=== PATIENT | female | born 1985 | race Caucasian/White ===

== ENCOUNTER → 2016-12-01 | Outpatient (CLI) | payer MEDICAID ==
--- NOTE | 2016-12-02 09:09 | US ---
Examination: Greater than 14 weeks transabdominal ultrasound with color Doppler and M-mode evaluatio n. HISTORY: FINDINGS: LMP is 07/11/2016 EVALUATION: Anterior placenta with a cephalic lie and grade 1. Visually amniotic fluid is with in normal limits. Fine detail is obscured secondary to body habitus. Three-vessel cord is noted present, not well characterized on the provided images. Ventricles are within normal limits. Four chamber heart is noted. Heart rate is 156 beats per minute. BIOMETRY AND GESTATIONAL AGE: Biparietal diameter 4.7 cm. The abdominal circumference measures 15.7 cm. The femoral length is 3.5 cm with head circumference of 18.6 cm. Gestational age is 21 weeks and 0 days. The expected date of delivery is approximately 04/13/2017. Fetus weight is 37 grams. Overall the fetus is within the 73rd percentile. Other detail anatomy summarized into PACs sheet after the images. No anatomical anomalies. The kidneys are also not well contrast on the provided images. IMPRESSION: Single active IU with cephalic fetus. Anterior placenta with grade 1, no placenta previa. No anomalies are seen. Amniotic fluid appears within normal limits.
== END ==
LOC: MW.US 08:58
PROVIDERS: ATTEND Advanced Practice Midwife
DX: Z34.90 Encounter for supervision of normal pregnancy, unspecified, unspecified trimester (principal)
CPT/HCPCS: 76805; 76805-26; G0145

== ENCOUNTER → 2017-01-26 | Outpatient (CLI) | payer MEDICAID | LOC: MW.CHOBGYN 08:33 | PROVIDERS: ATTEND Advanced Practice Midwife | DX: Z34.90 Encounter for supervision of normal pregnancy, unspecified, unspecified trimester (principal) | CPT/HCPCS: 36415; 82950; 85027; 86850 ==

== ENCOUNTER 2017-03-14 21:46 | Emergency (ER) | payer MEDICAID ==
--- NOTE | 2017-03-14 22:16 | EDM.PDOC ---
ED HPI GENERAL MEDICAL PROBLEM - General Chief Complaint: Skin Complaint Stated Complaint: RASH/MITES FROM CAT Time Seen by Provider: 03/14/17 22:09 - History of Present Illness INITIAL COMMENTS - FREE TEXT/NARRATIVE: HISTORY AND PHYSICAL: History of present illness: Patient 31-year-old female presents a concern of rash involving her upper chest face and neck that she feels may be from insect bites related to a new PET and may or may not have been infected she denies fever chills nausea vomiting she is currently Review of systems: As per history of present illness and below otherwise all systems reviewed and negative. Past medical history: As per history of present illness and as reviewed below otherwise noncontributory. Surgical history: As per history of present illness and as reviewed below otherwise noncontributory. Social history: No reported history of drug or alcohol abuse. Family history: As per history of present illness and as reviewed below otherwise noncontributory. Physical exam: HEENT: Atraumatic, normocephalic, pupils reactive, negative for conjunctival pallor or scleral icterus, mucous membranes moist, throat clear, neck supple, nontender, trachea midline. Lungs: Clear to auscultation, breath sounds equal bilaterally, chest nontender. Heart: S1S2, regular, negative for clicks, rubs, or JVD. Abdomen: Soft, nondistended, nontender. Negative for masses or hepatosplenomegaly. Negative for costovertebral tenderness. Pelvis: Stable nontender. Genitourinary: Deferred. Rectal: Deferred. Extremities: Atraumatic, negative for cords or calf pain. Neurovascular unremarkable. Neuro: Awake, alert, oriented. Cranial nerves II through XII unremarkable. Cerebellum unremarkable. Motor and sensory unremarkable throughout. Exam nonfocal. Skin: Patient has maculopapular rash with areas of excoriation involving her upper chest neck and chin some mild erythema no warmth no fluctuance no induration Diagnostics: None Therapeutics: None Impression: #1 rash Definitive disposition and diagnosis as appropriate pending reevaluation and review of above. 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: Reports: 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, Musculoskeletal History: Reports: None Neurological History: Reports: None Psychiatric History: Reports: None Endocrine/Metabolic History: Reports: None Hematologic History: Reports: None Immunologic History: Reports: None Oncologic (Cancer) History: Reports: None Dermatologic History: Reports: None - Infectious Disease History Infectious Disease History: Reports: Chicken Pox - Past Surgical History HEENT Surgical History: Reports: Adenoidectomy, Myringotomy w Tube(s), Tonsillectomy Social & Family History - Family History Family Medical History: Noncontributory - Tobacco Use Smoking Status *Q: Never Smoker Second Hand Smoke Exposure: No - Caffeine Use Caffeine Use: Reports: None - Recreational Drug Use Recreational Drug Use: No ED ROS GENERAL - Review of Systems Review Of Systems: ROS reveals no pertinent complaints other than HPI. ED EXAM, SKIN/RASH Exam: See Below (See dictation) Departure - Departure Time of Disposition: 22:15 Disposition: Home, Self-Care 01 Condition: Good Clinical Impression: Cellulitis - Discharge Information Forms: ED Department Discharge Additional Instructions: The following information is given to patients seen in the emergency department who are being discharged to home. This information is to outline your options for follow-up care. We provide all patients seen in our emergency department with a follow-up referral. The need for follow-up, as well as the timing and circumstances, are variable depending upon the specifics of your emergency department visit. If you don't have a primary care physician on staff, we will provide you with a referral. We always advise you to contact your personal physician following an emergency department visit to inform them of the circumstance of the visit and for follow-up with them and/or the need for any referrals to a consulting specialist. The emergency department will also refer you to a specialist when appropriate. This referral assures that you have the opportunity for followup care with a specialist. All of these measure are taken in an effort to provide you with optimal care, which includes your followup. Under all circumstances we always encourage you to contact your private physician who remains a resource for coordinating your care. When calling for followup care, please make the office aware that this follow-up is from your recent emergency room visit. If for any reason you are refused follow-up, please contact the [facility] emergency department at and asked to speak to the emergency department charge nurse. Keflex as prescribed follow-up primary medical doctor/dermatology is referred return as needed as discussed avoid any possible sources for rash including new
[2017-03-15 02:35] VITALS: BP 117/69
== END 2017-03-14 22:39 | disposition home or self-care (01) ==
LOC: MW.ED 21:46
DX: L03.211 Cellulitis of face (principal); L03.221 Cellulitis of neck; Z79.899 Other long term (current) drug therapy; Z96.22 Myringotomy tube(s) status
CPT/HCPCS: 99282; 99283

== ENCOUNTER 2017-09-17 14:41 | Emergency (ER) | payer MEDICAID ==
[2017-09-17] MEDS ORDERED: Albuterol/Ipratropium 3.0-0.5 MG/3 ML Neb Soln NEB ONE (15:08)
--- NOTE | 2017-09-17 16:22 | EDM.PDOC ---
ED HPI GENERAL MEDICAL PROBLEM - General Chief Complaint: Respiratory Problem Stated Complaint: SICK Time Seen by Provider: 09/17/17 15:18 Source of Information: Reports: Patient History Limitations: Reports: No Limitations - History of Present Illness INITIAL COMMENTS - FREE TEXT/NARRATIVE: History of present illness: [32-year-old female comes in complaining of cold type symptoms congestion cough intermittent low-grade fever.] Review of systems: As per history of present illness and below otherwise all systems reviewed and negative. Past medical history: As per history of present illness and as reviewed below otherwise noncontributory. Surgical history: As per history of present illness and as reviewed below otherwise noncontributory. Social history: No reported history of drug or alcohol abuse. Family history: As per history of present illness and as reviewed below otherwise noncontributory. Physical exam: HEENT: Atraumatic, normocephalic, pupils reactive, negative for conjunctival pallor or scleral icterus, mucous membranes moist with oral pharyngeal erythema , neck supple, nontender, bilateral TMs noted to be red and dull, trachea midline. Lungs: Clear to auscultation, breath sounds equal bilaterally, chest nontender. Heart: S1S2, regular, negative for clicks, rubs, or JVD. Abdomen: Soft, nondistended, nontender. Negative for masses or hepatosplenomegaly. Negative for costovertebral tenderness. Pelvis: Stable nontender. Genitourinary: Deferred. Rectal: Deferred. Extremities: Atraumatic, negative for cords or calf pain. Neurovascular unremarkable. Neuro: Awake, alert, oriented. Cranial nerves II through XII unremarkable. Cerebellum unremarkable. Motor and sensory unremarkable throughout. Exam nonfocal. Diagnostics: [Influenza AB] Therapeutics: [] Impression: [#1 otitis media #2 pharyngitis] Plan: [Antibiotics] Definitive disposition and diagnosis as appropriate pending reevaluation and review of above. 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: 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, Musculoskeletal History: Reports: None Neurological History: Reports: None Psychiatric History: Reports: None Endocrine/Metabolic History: Reports: None Hematologic History: Reports: None Immunologic History: Reports: None Oncologic (Cancer) History: Reports: None Dermatologic History: Reports: None - Infectious Disease History Infectious Disease History: Reports: Chicken Pox - Past Surgical History Head Surgeries/Procedures: Reports: None HEENT Surgical History: Reports: Adenoidectomy, Myringotomy w Tube(s), Tonsillectomy Female Surgical History: Reports: Section Social & Family History - Family History Family Medical History: Noncontributory - Tobacco Use Smoking Status *Q: Former Smoker Used Tobacco, but Quit: Yes Month Tobacco Last Used: 10 months Second Hand Smoke Exposure: No - Caffeine Use Caffeine Use: Reports: None - Recreational Drug Use Recreational Drug Use: No ED ROS GENERAL - Review of Systems Review Of Systems: See Below (See history of present illness) ED EXAM, GENERAL - Physical Exam Exam: See Below (See history of present illness) Course - Vital Signs Last Recorded V/S: Last Vital Signs Temp 36.4 C 09/17/17 15:04 Pulse 100 09/17/17 15:04 Resp 16 09/17/17 15:04 BP 127/55 L 09/17/17 15:04 Pulse Ox 98 09/17/17 15:04 - Orders/Labs/Meds Orders: Active Orders 24 hr Category Date Time Status RT Aerosol Therapy [RC] ASDIRECTED Care 09/17/17 15:08 Active Meds: Medications Discontinued Medications Generic Name Dose Route Start Last Admin Trade Name Freq PRN Reason Stop Dose Admin Albuterol/Ipratropium 3 ml 09/17/17 15:08 09/17/17 15:35 Duoneb 3.0-0.5 Mg/3 Ml NEB 09/17/17 15:09 3 ml ONETIME ONE Administration Departure - Departure Time of Disposition: 17:05 Disposition: Home, Self-Care 01 Condition: Good Clinical Impression: Sinusitis, Otitis media, Pharyngitis, Cough - Discharge Information Referrals: Matthew Bledsoe MD [Primary Care Provider] - Forms: ED Department Discharge Additional Instructions: The following information is given to patients seen in the emergency department who are being discharged to home. This information is to outline your options for follow-up care. We provide all patients seen in our emergency department with a follow-up referral. The need for follow-up, as well as the timing and circumstances, are variable depending upon the specifics of your emergency department visit. If you don't have a primary care physician on staff, we will provide you with a referral. We always advise you to contact your personal physician following an emergency department visit to inform them of the circumstance of the visit and for follow-up with them and/or the need for any referrals to a consulting specialist. The emergency department will also refer you to a specialist when appropriate. This referral assures that you have the opportunity for follow-up care with a specialist. All of these measure are taken in an effort to provide you with optimal care, which includes your follow-up. Under all circumstances we always encourage you to contact your private physician who remains a resource for coordinating your care. When calling for follow-up care, please make the office aware that this follow-up is from your recent emergency room visit. If for any reason you are refused follow-up, please contact the [facility] Emergency Department at and asked to speak to the emergency department charge nurse. Take medication as directed Follow-up with PCP in 2-3 days Return to ED as needed as discussed - My Orders Last 24 Hours: My Active Orders 09/17/17 15:08 RT Aerosol Therapy [RC] ASDIRECTED - Assessment/Plan Last 24 Hours: My Active Orders 09/17/17 15:08 RT Aerosol Therapy [RC] ASDIRECTED
[2017-09-17 17:28] VITALS: BP 119/68
== END 2017-09-17 17:23 | disposition home or self-care (01) ==
LOC: MW.ED 14:41
DX: H66.93 Otitis media, unspecified, bilateral (principal); J02.9 Acute pharyngitis, unspecified; J32.9 Chronic sinusitis, unspecified; Z87.891 Personal history of nicotine dependence
CPT/HCPCS: 87804; 94640; 99283; 99283-25

== ENCOUNTER 2019-01-24 05:13 | Inpatient (IN) | payer OTHER ==
[~2019-01-24 05:13] MED LIST: Acetaminophen 500 MG Tab PO PRN; Benzocaine/Menthol 20%-0.5% Spray 78 GM Cannister TOP PRN; Bisacodyl 10 MG Supp RECTAL PRN; Citric Acid/Sodium Citrate Solution 30 ML Cup PO ONE; Docusate Sodium 100 MG Cap PO PRN; Ibuprofen 400 MG Tab PO PRN; Ibuprofen 800 MG Tab PO PRN; Lanolin 100% Cream 7 GM Tube TOP PRN; Oxytocin/0.9 % Sodium Chloride 30 UNIT/500 ML BAG IV SCH; Sodium Chloride 0.9% 10 ML SDV IV PRN; Sodium Chloride 0.9% 10 ML Syringe FLUSH PRN; Sodium Chloride 0.9% 2.5 ML Syringe FLUSH PRN; Witch Hazel Medicated Pads 40/Jar TOP PRN; oxyCODONE 5 MG Tab PO PRN
[2019-01-24] MEDS: Lactated Ringers 1,000 ML IV SCH ×3 (05:34→07:28)
--- NOTE | 2019-01-24 07:01 | PCM.PREANE ---
Preanesthetic Assessment - Anesthesia/Transfusion/Family Hx Anesthesia History: Prior Anesthesia Without Reaction Other Type of Anesthesia Reaction Comment: was given medication "to relax" post- op, caused severe itching Family History of Anesthesia Reaction: No Transfusion History: No Prior Transfusion(s) Intubation History: Unknown - Review of Systems General: No Symptoms Pulmonary: No Symptoms Cardiovascular: No Symptoms Gastrointestinal: No Symptoms Neurological: No Symptoms Other: Reports: None - Physical Assessment Height: 1.7 m Weight: 144.242 kg ASA Class: 2 Mental Status: Alert & Oriented x3 Airway Class: Mallampati = 2 Dentition: Reports: Normal Dentition Thyro-Mental Finger Breadths: 3 Mouth Opening Finger Breadths: 3 ROM/Head Extension: Full Lungs: Clear to Auscultation, Normal Respiratory Effort Cardiovascular: Regular Rate, Regular Rhythm - Lab Values: Laboratory Last Values WBC 14.62 K/uL (4.0-11.0) H 01/23/19 14:13 RBC 4.02 M/uL (4.30-5.90) L 01/23/19 14:13 Hgb 11.5 g/dL (12.0-16.0) L 01/23/19 14:13 Hct 35.5 % (36.0-46.0) L 01/23/19 14:13 MCV 88.3 fL (80.0-98.0) 01/23/19 14:13 MCH 28.6 pg (27.0-32.0) 01/23/19 14:13 MCHC 32.4 g/dL (31.0-37.0) 01/23/19 14:13 RDW Std Deviation 47.1 fl (28.0-62.0) 01/23/19 14:13 RDW Coeff of Brant 15 % (11.0-15.0) 01/23/19 14:13 Plt Count 304 K/uL (150-400) 01/23/19 14:13 MPV 9.50 fL (7.40-12.00) 01/23/19 14:13 Nucleated RBC % 0.0 /100WBC 01/23/19 14:13 Nucleated RBCs # 0 K/uL 01/23/19 14:13 Blood Type O POSITIVE 01/23/19 14:13 Antibody Screen NEGATIVE 01/23/19 14:13 - Allergies Allergies/Adverse Reactions: Allergies Allergy/AdvReac Type Severity Reaction Status Date / Time No Known Allergies Allergy Verified 01/23/19 09:40 - Blood Blood Available: No - Anesthesia Plan Pre-Op Medication Ordered: None - Acknowledgements Anesthesia Type Planned: Spinal (general anesthesia back-up plan) Pt an Appropriate Candidate for the Planned Anesthesia: Yes Alternatives and Risks of Anesthesia Discussed w Pt/Guardian: Yes Pt/Guardian Understands and Agrees with Anesthesia Plan: Yes PreAnesthesia Questionnaire - Past Health History Medical/Surgical History: Denies Medical/Surgical History HEENT History: Reports: Other (See Below) Other HEENT History: wears glasses Cardiovascular History: Reports: None Respiratory History: Reports: None Gastrointestinal History: Reports: GERD Other Gastrointestinal History: during Genitourinary History: Reports: None 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: Musculoskeletal History: Reports: Fracture Other Musculoskeletal History: hx of fx wrist as a child Neurological History: Reports: None Psychiatric History: Reports: None Endocrine/Metabolic History: Reports: Obesity/BMI 30+ Hematologic History: Reports: None Immunologic History: Reports: None Oncologic (Cancer) History: Reports: None Dermatologic History: Reports: Eczema, Other (See Below) Other Dermatologic History: hx of Hydranitis Supurtiva - Infectious Disease History Infectious Disease History: Reports: Chicken Pox - Past Surgical History HEENT Surgical History: Reports: Adenoidectomy, Myringotomy w Tube(s), Oral Surgery, Tonsillectomy Other HEENT Surgeries/Procedures: wisdom teeth Female Surgical History: Reports: Section (x2) - SUBSTANCE USE Smoking Status *Q: Former Smoker Tobacco Use Within Last Twelve Months: Cigarettes Second Hand Smoke Exposure: Yes Recreational Drug Use History: No - HOME MEDS Home Medications: Home Meds Vits #93/Iron Fum/FA [ Formula Tablet] 1 each PO DAILY [History] Ranitidine [Zantac] 150 mg PO ASDIRECTED PRN 01/23/19 [History] - CURRENT (IN HOUSE) MEDS Current Meds: Current Medications Acetaminophen (Tylenol Extra Strength) 500 mg PO Q4H PRN PRN Reason: Pain Acetaminophen (Tylenol Extra Strength) 1,000 mg PO Q4H PRN PRN Reason: Pain Benzocaine/Menthol (Dermoplast Pain Relief 20%-0.5% Piru) 78 gm TOP ASDIRECTED PRN PRN Reason: Perineal Comfort Measure Bisacodyl (Dulcolax) 10 mg RECTAL ONETIME PRN PRN Reason: Constipation Docusate Sodium (Colace) 100 mg PO BID PRN PRN Reason: Constipation Emollient Ointment (Lansinoh Hpa) 0 gm TOP ASDIRECTED PRN PRN Reason: Sore Nipples Oxytocin/Sodium Chloride (Oxytocin 30 Unit/500 Ml-Ns) 30 unit in 500 mls @ 250 mls/hr IV TITRATE YOMI Lactated Ringer's (Ringers, Lactated) 1,000 mls @ 500 mls/hr IV BOLUS YOMI Last Admin: 01/24/19 06:17 Dose: 500 mls/hr Ibuprofen (Motrin) 400 mg PO Q4H PRN PRN Reason: Pain Ibuprofen (Motrin) 800 mg PO Q6H PRN PRN Reason: Pain Oxycodone HCl (Oxycodone) 5 mg PO Q2H PRN PRN Reason: Pain Sodium Chloride (Saline Flush) 10 ml FLUSH ASDIRECTED PRN PRN Reason: Keep Vein Open Sodium Chloride (Saline Flush) 2.5 ml FLUSH ASDIRECTED PRN PRN Reason: Keep Vein Open Sodium Chloride (Normal Saline) 10 ml IV ASDIRECTED PRN PRN Reason: IV Use Witch Svitlana (Tucks) 1 pad TOP ASDIRECTED PRN PRN Reason: comfort care Discontinued Medications Citric Acid/Sodium Citrate (Bicitra Solution) 30 ml PO ONETIME ONE Stop: 01/23/19 14:04
[2019-01-24] MEDS ORDERED: Octyl 2-Cyanoacrylate 1 Tube ONE ×2 (07:15→08:56)
[2019-01-24] MEDS ORDERED: ceFAZolin 1 GM Vial ONE (07:55)
[2019-01-24] MEDS ORDERED: Phenylephrine/Normal Saline 100 MCG/ML 10 ML Syringe ONE (07:55)
[2019-01-24] MEDS ORDERED: ePHEDrine 50 MG/ML SDV ONE (07:55)
[2019-01-24] MEDS ORDERED: Sodium Chloride 0.9% 20 ML ONE (07:55)
[2019-01-24] MEDS ORDERED: Oxytocin 10 Units/1 ML SDV ONE (07:55)
--- NOTE | 2019-01-24 08:04 | PCM.LDHP ---
L&D History of Present Illness - General Date of Service: 01/24/19 Admit Problem/Dx: Patient Status Order with Admit Dx/Problem 01/23/19 13:25 Patient Status [ADT] Routine 01/23/19 14:03 Patient Status [ADT] Routine Admission Diagnosis/Problem Admission Diagnosis/Problem Source of Information: Patient History Limitations: Reports: No Limitations - History of Present Illness Improves with: Reports: None Worsens with: Reports: None Associated Symptoms: Reports: N - Related Data Allergies/Adverse Reactions: Allergies Allergy/AdvReac Type Severity Reaction Status Date / Time No Known Allergies Allergy Verified 01/23/19 09:40 Home Medications: Home Meds Vits #93/Iron Fum/FA [ Formula Tablet] 1 each PO DAILY [History] Ranitidine [Zantac] 150 mg PO ASDIRECTED PRN 01/23/19 [History] Past Medical History - Past Health History Medical/Surgical History: Denies Medical/Surgical History HEENT History: Reports: Other (See Below) Other HEENT History: wears glasses Cardiovascular History: Reports: None Respiratory History: Reports: None Gastrointestinal History: Reports: GERD Other Gastrointestinal History: during Genitourinary History: Reports: None [employer] History: Reports: Musculoskeletal History: Reports: Fracture Other Musculoskeletal History: hx of fx wrist as a child Neurological History: Reports: None Psychiatric History: Reports: None Endocrine/Metabolic History: Reports: Obesity/BMI 30+ Hematologic History: Reports: None Immunologic History: Reports: None Oncologic (Cancer) History: Reports: None Dermatologic History: Reports: Eczema, Other (See Below) Other Dermatologic History: hx of Hydranitis Supurtiva - Infectious Disease History Infectious Disease History: Reports: Chicken Pox - Past Surgical History HEENT Surgical History: Reports: Adenoidectomy, Myringotomy w Tube(s), Oral Surgery, Tonsillectomy Other HEENT Surgeries/Procedures: wisdom teeth Female Surgical History: Reports: Section (x2) Social & Family History - Family History Family Medical History: Noncontributory - Tobacco Use Smoking Status *Q: Former Smoker Used Tobacco, but Quit: Yes Month/Year Tobacco Last Used: 2018 Second Hand Smoke Exposure: Yes - Caffeine Use Caffeine Use: Reports: Coffee - Recreational Drug Use Recreational Drug Use: No Drug Use in Last 12 Months: No H&P Review of Systems - Review of Systems: Review Of Systems: See Below General: Reports: No Symptoms HEENT: Reports: No Symptoms Pulmonary: Reports: No Symptoms Cardiovascular: Reports: No Symptoms Gastrointestinal: Reports: No Symptoms Genitourinary: Reports: No Symptoms Musculoskeletal: Reports: No Symptoms Skin: Reports: No Symptoms Psychiatric: Reports: No Symptoms Neurological: Reports: No Symptoms Hematologic/Lymphatic: Reports: No Symptoms Immunologic: Reports: No Symptoms L&D Exam - Exam Exam: See Below - Vital Signs Weight: 144.242 kg - OB Specific Contraction Intensity: Mild Movement: Active Heart Tones: Present Presentation: Vertex - Exam General: Alert, Oriented HEENT: PERRLA, Conjunctiva Clear, EACs Clear, EOMI, Hearing Intact, Mucosa Moist & [place], Nares Patent, Normal Nasal Septum, Posterior Pharynx Clear, TMs Clear Neck: Supple, Trachea Midline Lungs: Clear to Auscultation, Normal Respiratory Effort Cardiovascular: Regular Rate, Regular Rhythm GI/Abdominal Exam: Normal Bowel Sounds, Soft, Non-Tender, No Organomegaly, No Distention, No Abnormal Bruit, No Mass, Pelvis Stable Rectal Exam: Normal Exam, Normal Rectal Tone Genitourinary: Normal external exam, Normal bimanual exam, Normal speculum exam Back Exam: Normal Inspection, Full Range of Motion Extremities: Normal Inspection, Normal Range of Motion, Non-Tender, No Pedal Edema, Normal Capillary Refill Skin: Warm, Dry, Intact Neurological: Cranial Nerves Intact, Reflexes Equal Bilateral Psychiatric: Alert, Normal Affect, Normal Mood - Patient Data Lab Results Last 24 hrs: Laboratory Results - last 24 hr 01/23/19 01/23/19 Range/Units 14:13 14:13 WBC 14.62 H (4.0-11.0) K/uL RBC 4.02 L (4.30-5.90) M/uL Hgb 11.5 L (12.0-16.0) g/dL Hct 35.5 L (36.0-46.0) % MCV 88.3 (80.0-98.0) fL MCH 28.6 (27.0-32.0) pg MCHC 32.4 (31.0-37.0) g/dL RDW Std Deviation 47.1 (28.0-62.0) fl RDW Coeff of Brant 15 (11.0-15.0) % Plt Count 304 (150-400) K/uL MPV 9.50 (7.40-12.00) fL Nucleated RBC % 0.0 /100WBC Nucleated RBCs # 0 K/uL Blood Type O POSITIVE Antibody Screen NEGATIVE Result Diagrams: 01/23/19 14:13 Problem List Initiated/Reviewed/Updated: Yes Orders Last 24hrs: Active Orders 24 hr Category Date Time Status Patient Status [ADT] Routine ADT 01/23/19 14:03 Active Non Stress Test [RC] PER UNIT ROUTINE Care 01/23/19 14:03 Active May Shower [RC] ASDIRECTED Care 01/23/19 13:25 Active Procedure Site Prep Instruct [RC] ASDIRECTED Care 01/23/19 14:03 Active Up ad Yumiko [RC] ASDIRECTED Care 01/23/19 13:25 Active Up ad Yumiko [RC] ASDIRECTED Care 01/23/19 14:03 Active Vital Signs [RC] PER UNIT ROUTINE Care 01/23/19 13:25 Active Vital Signs [RC] PER UNIT ROUTINE Care 01/23/19 14:03 Active HEMOGLOBIN/HEMATOCRIT,HH [HEME] Routine Lab 01/24/19 05:11 Ordered Acetaminophen [Tylenol Extra Strength] Med 01/23/19 13:25 Active 1,000 mg PO Q4H PRN Acetaminophen [Tylenol Extra Strength] Med 01/23/19 13:25 Active 500 mg PO Q4H PRN Benzocaine/Menthol [Dermoplast Pain Relief 20%-0.5% Med 01/23/19 13:25 Active [place]] 78 gm TOP ASDIRECTED PRN Bisacodyl [Dulcolax] Med 01/23/19 13:25 Active 10 mg RECTAL ONETIME PRN Docusate Sodium [Colace] Med 01/23/19 13:25 Active 100 mg PO BID PRN Ibuprofen [Motrin] Med 01/23/19 13:25 Active 400 mg PO Q4H PRN Ibuprofen [Motrin] Med 01/23/19 13:25 Active 800 mg PO Q6H PRN Lactated Ringers [Ringers, Lactated] 1,000 ml Med 01/23/19 14:15 Active IV BOLUS Lanolin [Lansinoh HPA] Med 01/23/19 13:25 Active See Dose Instructions TOP ASDIRECTED PRN Oxytocin/0.9 % Sodium Chloride [Oxytocin 30 Unit/500 ML Med 01/23/19 14:15 Active -NS] 30 unit in 500 ml IV TITRATE Sodium Chloride 0.9% [Normal Saline] Med 01/23/19 14:03 Active 10 ml IV ASDIRECTED PRN Sodium Chloride 0.9% [Saline Flush] Med 01/23/19 14:03 Active 10 ml FLUSH ASDIRECTED PRN Sodium Chloride 0.9% [Saline Flush] Med 01/23/19 14:03 Active 2.5 ml FLUSH ASDIRECTED PRN Witch Svitlana [Tucks] Med 01/23/19 13:25 Active 1 pad TOP ASDIRECTED PRN oxyCODONE Med 01/23/19 13:25 Active 5 mg PO Q2H PRN Assess Lochia [WOMSER] Per Unit Routine Oth 01/23/19 13:25 Ordered Assess Uterine Involution [WOMSER] Per Unit Routine Oth 01/23/19 13:25 Ordered Peripheral IV Discontinue [OM.PC] Routine Oth 01/23/19 13:25 Ordered Peripheral IV Insertion Adult [OM.PC] Routine Oth 01/23/19 14:03 Ordered Resuscitation Status Routine Resus Stat 01/23/19 13:25 Ordered Medication Orders Acetaminophen (Tylenol Extra Strength) 500 mg PO Q4H PRN PRN Reason: Pain Acetaminophen (Tylenol Extra Strength) 1,000 mg PO Q4H PRN PRN Reason: Pain Benzocaine/Menthol (Dermoplast Pain Relief 20%-0.5% [place]) 78 gm TOP ASDIRECTED PRN PRN Reason: Perineal Comfort Measure Bisacodyl (Dulcolax) 10 mg RECTAL ONETIME PRN PRN Reason: Constipation Docusate Sodium (Colace) 100 mg PO BID PRN PRN Reason: Constipation Emollient Ointment (Lansinoh Hpa) 0 gm TOP ASDIRECTED PRN PRN Reason: Sore Nipples Oxytocin/Sodium Chloride (Oxytocin 30 Unit/500 Ml-Ns) 30 unit in 500 mls @ 250 mls/hr IV TITRATE YOMI Lactated Ringer's (Ringers, Lactated) 1,000 mls @ 500 mls/hr IV BOLUS YOMI Last Admin: 01/24/19 07:28 Dose: 500 mls/hr Infusion: 01/24/19 07:28 Dose: 500 mls/hr Admin: 01/24/19 06:17 Dose: 500 mls/hr Infusion: 01/24/19 06:17 Dose: 500 mls/hr Admin: 01/24/19 05:34 Dose: 500 mls/hr Ibuprofen (Motrin) 400 mg PO Q4H PRN PRN Reason: Pain Ibuprofen (Motrin) 800 mg PO Q6H PRN PRN Reason: Pain Oxycodone HCl (Oxycodone) 5 mg PO Q2H PRN PRN Reason: Pain Sodium Chloride (Saline Flush) 10 ml FLUSH ASDIRECTED PRN PRN Reason: Keep Vein Open Sodium Chloride (Saline Flush) 2.5 ml FLUSH ASDIRECTED PRN PRN Reason: Keep Vein Open Sodium Chloride (Normal Saline) 10 ml IV ASDIRECTED PRN PRN Reason: IV Use Witch Svitlana (Tucks) 1 pad TOP ASDIRECTED PRN PRN Reason: comfort care Assessment/Plan Comment:: IUP 39wks Admitted for elective repeat C/section.
[2019-01-24] MEDS ORDERED: Ketorolac 30 MG/ML SDV ONE (08:53)
[2019-01-24] MEDS ORDERED: Witch Hazel Medicated Pads 40/Jar TOP PRN (08:56)
[2019-01-24] MEDS ORDERED: Benzocaine/Menthol 20%-0.5% Spray 78 GM Cannister TOP PRN (08:56)
[2019-01-24] MEDS ORDERED: Docusate Sodium 100 MG Cap PO PRN (08:56)
[2019-01-24] MEDS ORDERED: Ibuprofen 400 MG Tab PO PRN (08:56)
[2019-01-24] MEDS ORDERED: oxyCODONE 5 MG Tab PO PRN (08:56)
[2019-01-24] MEDS ORDERED: Bisacodyl 10 MG Supp RECTAL PRN ×2 (08:56→09:41)
[2019-01-24] MEDS ORDERED: Lanolin 100% Cream 7 GM Tube TOP PRN ×2 (08:56→09:41)
[2019-01-24] MEDS ORDERED: Acetaminophen 500 MG Tab PO PRN ×2 (08:56)
[2019-01-24] MEDS ORDERED: Ibuprofen 800 MG Tab PO PRN ×2 (08:56→09:41)
[2019-01-24] MEDS ORDERED: diphenhydrAMINE 50 MG/ML SDV IVPUSH PRN ×2 (08:58→09:41)
[2019-01-24] MEDS ORDERED: Naloxone 0.4 MG/ML Syringe IVPUSH PRN (08:58)
[2019-01-24] MEDS ORDERED: Acetaminophen/oxyCODONE 325-5 MG Tab PO PRN ×3 (08:58→09:41)
[2019-01-24] MEDS ORDERED: Nalbuphine 10 MG/1 ML Vial IVPUSH PRN (08:58)
[2019-01-24] MEDS ORDERED: Ondansetron 4 MG/2 ML SDV IVPUSH PRN ×2 (08:58→09:41)
[2019-01-24] MEDS ORDERED: fentaNYL 100 MCG/2 ML SDV IVPUSH PRN (08:58)
--- NOTE | 2019-01-24 08:59 | PCM.OPNOTE ---
- General Post-Op/Procedure Note Date of Surgery/Procedure: 01/24/19 Operative Procedure(s): Repeat C/section. Pre Op Diagnosis: [id number] Previous C/section. Post-Op Diagnosis: Same Anesthesia Technique: Spinal Primary Surgeon: Hansel Hauser EBL in mLs: 700 Complications: None Condition: Good
[2019-01-24] MEDS ORDERED: Lactated Ringers 1,000 ML IV SCH (09:45)
--- NOTE | 2019-01-24 09:54 | PCM.POSTAN ---
POST ANESTHESIA ASSESSMENT - MENTAL STATUS Mental Status: Alert - VITAL SIGNS Pulse Rate: 99 SaO2: 98 Resp Rate: 16 Blood Pressure: 122/82 Temperature: 96.7 F - RESPIRATORY Respiratory Status: Respiratory Rate WNL, Airway Patent, O2 Saturation Stable - CARDIOVASCULAR CV Status: Pulse Rate WNL, Blood Pressure Stable - GASTROINTESTINAL GI Status: No Symptoms - POST OP HYDRATION Hydration Status: Adequate & Stable
[2019-01-24] MEDS: Ketorolac 30 MG/ML SDV IVPUSH SCH ×3 (15:09→20:52)
--- NOTE | 2019-01-24 15:48 | OR ---
SURGEON: Hansel Hauser MD DATE OF PROCEDURE: PREOPERATIVE DIAGNOSES: 1. Intrauterine , 39 weeks. 2. Previous section. POSTOPERATIVE DIAGNOSES: 1. Intrauterine , 39 weeks. 2. Previous section. OPERATION PERFORMED: Repeat low-transverse section. ORTHO TECH: Felicia Heck, student nurse gre instructor and OR biomedical equipment technician. ANESTHESIA: Spinal. ESTIMATED BLOOD LOSS: 700 mL. COMPLICATIONS: None. FINDINGS: Male fetus. score of 8 and 9. Normal uterus, tubes, and ovaries. INDICATIONS: This patient is term. She is 39 weeks. She is admitted for elective repeat section. She is followed in our clinic mainly by our nurse gre instructor. PROCEDURE IN DETAIL: The patient was brought to the OR and properly identified. After adequate level of spinal anesthesia with a Fowler catheter in the bladder and the patient was prepped and draped in a sterile fashion as usual, time-out taken to re-identify the patient and after we finished that, low-transverse Pfannenstiel skin incision was done. The Chang's fascia and rectus fascia were opened in the direction of the incision. The 2 recti muscles were and peritoneal cavity was entered. A low-transverse uterine incision was done and extended manually with the hand. Fetus was in a vertex position, delivered, cried immediately. score reported to be 8 and 9. The weight is not available. The placenta delivered spontaneous, complete, and intact. Repair of the lower uterine segment was done with 2-0 Vicryl continuous interlocking in 2 layers. Re-peritonealization was done with 3-0 Vicryl continuous. The peritoneal cavity was closed with 3-0 Vicryl after evacuated from all blood and blood clot, and the rectus fascia was closed with #1 PDS double strand continuous. Chang's fascia with 3-0 Vicryl continuous. Skin closed with skin clips, Insorb, and Dermabond. Instrument and sponge count was correct. The patient tolerated the procedure well and went to recovery room in stable general condition. EDUARDO / PRINCESS /[id number]
[2019-01-24] MEDS: Docusate Sodium 100 MG Cap PO SCH (20:53)
[2019-01-25] MEDS: Ketorolac 30 MG/ML SDV IVPUSH SCH ×2 (02:54→09:10)
[2019-01-25] MEDS: Docusate Sodium 100 MG Cap PO SCH ×2 (09:10→20:23)
--- NOTE | 2019-01-25 09:23 | PCM.PNPP ---
- General Info Date of Service: 01/25/19 Functional Status: Reports: Pain Controlled - Review of Systems General: Reports: No Symptoms HEENT: Reports: No Symptoms Pulmonary: Reports: No Symptoms Cardiovascular: Reports: No Symptoms Gastrointestinal: Reports: No Symptoms Genitourinary: Reports: No Symptoms Musculoskeletal: Reports: No Symptoms Skin: Reports: No Symptoms Neurological: Reports: No Symptoms Psychiatric: Reports: No Symptoms - General Info Date of Service: 01/25/19 - Patient Data Vital Signs - Most Recent: Last Vital Signs Temp 36.2 C 01/25/19 07:50 Pulse 96 01/25/19 07:50 Resp 17 01/25/19 07:50 BP 138/67 01/25/19 07:50 Pulse Ox 99 01/25/19 07:50 Weight - Most Recent: 144.242 kg I&O - Last 24 Hours: Intake & Output 01/24/19 01/25/19 01/25/19 22:59 06:59 14:59 Intake Total 900 Output Total 1100 Balance -1100 900 Lab Results - Last 24 Hours: Laboratory Results - last 24 hr 01/24/19 01/25/19 Range/Units 09:23 05:33 Hgb 10.2 L 9.7 L (12.0-16.0) g/dL Hct 31.6 L 29.9 L (36.0-46.0) % Med Orders - Current: Current Medications Bisacodyl (Dulcolax) 10 mg RECTAL ONETIME PRN PRN Reason: Constipation Diphenhydramine HCl (Benadryl) 25 mg IVPUSH Q6H PRN PRN Reason: Itching or Nausea Docusate Sodium (Colace) 100 mg PO BID [facility] Last Admin: 01/25/19 09:10 Dose: 100 mg Emollient Ointment (Lansinoh Hpa) 0 gm TOP ASDIRECTED PRN PRN Reason: Sore Nipples Last Admin: 01/25/19 00:04 Dose: 1 tube Fentanyl (Sublimaze) 50 mcg IVPUSH Q1H PRN PRN Reason: Pain (severe 7-10) Lactated Ringer's (Ringers, Lactated) 1,000 mls @ 125 mls/hr IV ASDIRECTED [facility] Last Admin: 01/24/19 10:49 Dose: 125 mls/hr Ibuprofen (Motrin) 800 mg PO Q8H PRN PRN Reason: mild pain or fever Ketorolac Tromethamine (Toradol) 30 mg IVPUSH Q6H [facility] Stop: 01/25/19 09:46 Last Admin: 01/25/19 09:10 Dose: 30 mg Nalbuphine HCl (Nubain) 5 mg IVPUSH ASDIRECTED PRN PRN Reason: Itching Ondansetron HCl (Zofran) 4 mg IVPUSH Q6H PRN PRN Reason: Nausea Ondansetron HCl (Zofran) 4 mg IVPUSH Q4H PRN PRN Reason: Nausea/Vomiting Oxycodone/Acetaminophen (Percocet 325-5 Mg) 2 tab PO Q6H PRN PRN Reason: Pain (moderate 4-6) Oxycodone/Acetaminophen (Percocet 325-5 Mg) 1 tab PO Q4H PRN PRN Reason: Pain (moderate 4-6) Oxycodone/Acetaminophen (Percocet 325-5 Mg) 2 tab PO Q4H PRN PRN Reason: Pain (moderate 4-6) Discontinued Medications Cefazolin Sodium (Ancef) Confirm Administered Dose 1 gm .ROUTE .STK-MED ONE Stop: 01/24/19 07:56 Diphenhydramine HCl (Benadryl) 25 mg IVPUSH Q4H PRN PRN Reason: Itching Stop: 01/25/19 08:58 Ephedrine Sulfate (Ephedrine Sulfate) Confirm Administered Dose 50 mg .ROUTE .STK-MED ONE Stop: 01/24/19 07:56 Lactated Ringer's (Ringers, Lactated) 1,000 mls @ 500 mls/hr IV BOLUS [facility] Last Admin: 01/24/19 07:28 Dose: 500 mls/hr Ketorolac Tromethamine (Toradol) Confirm Administered Dose 30 mg .ROUTE .STK- MED ONE Stop: 01/24/19 08:54 Naloxone HCl (Narcan) 0.1 mg IVPUSH ONETIME PRN PRN Reason: Respiratory Depression Stop: 01/25/19 08:58 Octyl Cyanoacrylate (Dermabond Advance) Confirm Administered Dose 1 applic .ROUTE .STK-MED ONE Stop: 01/24/19 07:16 Octyl Cyanoacrylate (Dermabond Advance) Confirm Administered Dose 1 applic .ROUTE .STK-MED ONE Stop: 01/24/19 08:57 Oxytocin (Pitocin) Confirm Administered Dose 30 unit .ROUTE .STK-MED ONE Stop: 01/24/19 07:56 Phenylephrine HCl (Phenylephrine In Ns 100 Mcg/Ml) Confirm Administered Dose 1 mg .ROUTE .STK-MED ONE Stop: 01/24/19 07:56 - Infant Interaction Infant Disposition, : [place] in Room with Family Infant Interaction: Holding Infant Feeding: Attempted ; Nursed Fair/Poor Support Person: - Recovery Exam Fundal Tone: Firm Fundal Level: At Umbilicus Fundal Placement: Midline Lochia Amount: Scant Lochia Color: Rubra/Red Perineum Description: Intact, Minimal Bruising/Swelling Episiotomy/Laceration: None Bladder Status: Indwelling Catheter in Place Urinary Elimination: Indwelling Catheter - Exam General: Alert, Oriented HEENT: Pupils Equal Neck: Supple Lungs: Clear to Auscultation, Normal Respiratory Effort Cardiovascular: Regular Rate, Regular Rhythm GI/Abdominal Exam: Normal Bowel Sounds, Soft, Non-Tender, No Organomegaly, No Distention, No Abnormal Bruit, No Mass, Pelvis Stable Extremities: Normal Inspection, Normal Range of Motion, Non-Tender, No Pedal Edema, Normal Capillary Refill Skin: Warm, Dry, Intact Wound/Incisions: Healing Well Neurological: No New Focal Deficit Psy/Mental Status: Alert, Normal Affect, Normal Mood - Problem List Review Problem List Initiated/Reviewed/Updated: Yes - My Orders Last 24 Hours: My Active Orders 01/24/19 08:32 Patient Status [ADT] Routine Notify Provider Intake and Out [RC] ASDIRECTED Notify Provider Vital Signs [RC] ASDIRECTED 01/24/19 08:56 May Shower [RC] ASDIRECTED Up ad Yumiko [RC] ASDIRECTED Vital Signs [RC] PER UNIT ROUTINE Peripheral IV Discontinue [OM.PC] Routine 01/24/19 09:41 Ambulate [RC] PER UNIT ROUTINE Communication Order [RC] PER UNIT ROUTINE Communication Order [RC] PER UNIT ROUTINE May Shower [RC] ASDIRECTED RT Incentive Spirometry [RC] Q2HWA Vital Signs [RC] Q1H Acetaminophen/oxyCODONE [Percocet 325-5 MG] 1 tab PO Q4H PRN Acetaminophen/oxyCODONE [Percocet 325-5 MG] 2 tab PO Q4H PRN Bisacodyl [Dulcolax] 10 mg RECTAL ONETIME PRN Ibuprofen [Motrin] 800 mg PO Q8H PRN Lanolin [Lansinoh HPA] See Dose Instructions TOP ASDIRECTED PRN Ondansetron [Zofran] 4 mg IVPUSH Q4H PRN diphenhydrAMINE [Benadryl] 25 mg IVPUSH Q6H PRN Assess Lochia [WOMSER] Per Unit Routine Assess Uterine Involution [WOMSER] Per Unit Routine Breast Pump [WOMSER] Per Unit Routine Peripheral IV Discontinue [OM.PC] Routine Sequential Compression Device [OM.PC] Per Unit Routine 01/24/19 09:42 Antiembolic Devices [RC] PER UNIT ROUTINE 01/24/19 09:43 Intake and Output [RC] Q12H 01/24/19 09:45 Ketorolac [Toradol] 30 mg IVPUSH Q6H Lactated Ringers [Ringers, Lactated] 1,000 ml IV ASDIRECTED 01/24/19 21:00 Docusate Sodium [Colace] 100 mg PO BID - Assessment Assessment:: Status post section postoperative day #1 patient is doing well ambulatory on regular diet and voiding without any problem. Planning for her to be discharge in a.m. - Plan Plan:: IUP 39wks Admitted for elective repeat C/section.
--- NOTE | 2019-01-25 11:48 | PCM48HPAN ---
Post Anesthesia Note - EVALUATION WITHIN 48HRS OF ANESTHETIC Vital Signs in Normal Range: Yes Patient Participated in Evaluation: No (Patient in shower. Family states she is doing well) Respiratory Function Stable: Yes Airway Patent: Yes Cardiovascular Function Stable: Yes Hydration Status Stable: Yes Pain Control Satisfactory: Yes (Family states she is doing great) Nausea and Vomiting Control Satisfactory: Yes Mental Status Recovered: Yes Pulse Rate: 99 Resp Rate: 17 Temperature: 35.9 C Blood Pressure: 122/82
[2019-01-25] MEDS: Ibuprofen 800 MG Tab PO PRN ×2 (14:06→20:21)
[2019-01-26] MEDS: Ibuprofen 800 MG Tab PO PRN ×2 (01:41→06:57)
[2019-01-26 08:23] VITALS: BP 137/68
[2019-01-26] MEDS: Docusate Sodium 100 MG Cap PO SCH (09:27)
--- NOTE | 2019-01-26 10:00 | PCM.DCSUM1 ---
Discharge Summary - Hospital Course Free Text/Narrative:: Discharge home with . Follow up in 1 week for incision check and 6 weeks for visit. Diagnosis: Stroke: No - Discharge Data Discharge Date: 01/26/19 Discharge Disposition: Admitted As Inpatient 68 Condition: Good - Patient Summary/Data Operative Procedure(s) Performed: Repeat C/section. - Patient Instructions Diet: Usual Diet as Tolerated Activity: Bedrest, No Strenuous Activities, Rest and Relax Today Driving: Do Not Drive (for 1 week) Showering/Bathing: May Shower Wound/Incision Care: Keep Operative Site/Wound Site Clean and Dry Notify Provider of: Fever, Increased Pain, Drainage, Nausea and/or Vomiting - Discharge Plan *PRESCRIPTION DRUG MONITORING PROGRAM REVIEWED*: Not Applicable *COPY OF PRESCRIPTION DRUG MONITORING REPORT IN PATIENT TRACEY: Not Applicable Home Medications: Home Meds Vits #93/Iron Fum/FA [ Formula Tablet] 1 each PO DAILY [History] Ranitidine [Zantac] 150 mg PO ASDIRECTED PRN 01/23/19 [History] Oxygen Therapy Mode: Room Air Referrals: [facility] [Outside] - 03/07/19 10:45 am Melanie Faye [Ordering Only Provider] - Joanie Freeman CNM [Mid-] - 01/30/19 10:45 am - Discharge Summary/Plan Comment DC Time >30 min.: Yes - General Info Admission Dx/Problem (Free Text: Patient Status Order with Admit Dx/Problem 01/23/19 13:25 Patient Status [ADT] Routine 01/23/19 14:03 Patient Status [ADT] Routine Admission Diagnosis/Problem Admission Diagnosis/Problem Functional Status: Reports: Pain Controlled, Tolerating Diet, Ambulating, Urinating - Review of Systems General: Reports: No Symptoms HEENT: Reports: No Symptoms Pulmonary: Reports: No Symptoms Cardiovascular: Reports: No Symptoms Gastrointestinal: Reports: No Symptoms Genitourinary: Reports: No Symptoms Musculoskeletal: Reports: No Symptoms Skin: Reports: No Symptoms Neurological: Reports: No Symptoms Psychiatric: Reports: No Symptoms - Patient Data Vitals - Most Recent: Last Vital Signs Temp 36.2 C 01/26/19 08:00 Pulse 78 01/26/19 08:00 Resp 18 01/26/19 08:00 BP 137/68 01/26/19 08:00 Pulse Ox 98 01/26/19 08:00 Weight - Most Recent: 144.242 kg Med Orders - Current: Current Medications Bisacodyl (Dulcolax) 10 mg RECTAL ONETIME PRN PRN Reason: Constipation Diphenhydramine HCl (Benadryl) 25 mg IVPUSH Q6H PRN PRN Reason: Itching or Nausea Docusate Sodium (Colace) 100 mg PO BID [facility] Last Admin: 01/26/19 09:27 Dose: Not Given Emollient Ointment (Lansinoh Hpa) 0 gm TOP ASDIRECTED PRN PRN Reason: Sore Nipples Last Admin: 01/25/19 00:04 Dose: 1 tube Fentanyl (Sublimaze) 50 mcg IVPUSH Q1H PRN PRN Reason: Pain (severe 7-10) Lactated Ringer's (Ringers, Lactated) 1,000 mls @ 125 mls/hr IV ASDIRECTED YOMI Last Admin: 01/24/19 10:49 Dose: 125 mls/hr Ibuprofen (Motrin) 800 mg PO Q4H PRN PRN Reason: Pain Last Admin: 01/26/19 06:57 Dose: 800 mg Nalbuphine HCl (Nubain) 5 mg IVPUSH ASDIRECTED PRN PRN Reason: Itching Ondansetron HCl (Zofran) 4 mg IVPUSH Q6H PRN PRN Reason: Nausea Ondansetron HCl (Zofran) 4 mg IVPUSH Q4H PRN PRN Reason: Nausea/Vomiting Oxycodone/Acetaminophen (Percocet 325-5 Mg) 2 tab PO Q6H PRN PRN Reason: Pain (moderate 4-6) Oxycodone/Acetaminophen (Percocet 325-5 Mg) 1 tab PO Q4H PRN PRN Reason: Pain (moderate 4-6) Oxycodone/Acetaminophen (Percocet 325-5 Mg) 2 tab PO Q4H PRN PRN Reason: Pain (moderate 4-6) Discontinued Medications Cefazolin Sodium (Ancef) Confirm Administered Dose 1 gm .ROUTE .STK-MED ONE Stop: 01/24/19 07:56 Diphenhydramine HCl (Benadryl) 25 mg IVPUSH Q4H PRN PRN Reason: Itching Stop: 01/25/19 08:58 Ephedrine Sulfate (Ephedrine Sulfate) Confirm Administered Dose 50 mg .ROUTE .STK-MED ONE Stop: 01/24/19 07:56 Lactated Ringer's (Ringers, Lactated) 1,000 mls @ 500 mls/hr IV BOLUS [facility] Last Admin: 01/24/19 07:28 Dose: 500 mls/hr Ibuprofen (Motrin) 800 mg PO Q8H PRN PRN Reason: mild pain or fever Ketorolac Tromethamine (Toradol) Confirm Administered Dose 30 mg .ROUTE .STK- MED ONE Stop: 01/24/19 08:54 Ketorolac Tromethamine (Toradol) 30 mg IVPUSH Q6H [facility] Stop: 01/25/19 09:46 Last Admin: 01/25/19 09:10 Dose: 30 mg Naloxone HCl (Narcan) 0.1 mg IVPUSH ONETIME PRN PRN Reason: Respiratory Depression Stop: 01/25/19 08:58 Octyl Cyanoacrylate (Dermabond Advance) Confirm Administered Dose 1 applic .ROUTE .STK-MED ONE Stop: 01/24/19 07:16 Octyl Cyanoacrylate (Dermabond Advance) Confirm Administered Dose 1 applic .ROUTE .STK-MED ONE Stop: 01/24/19 08:57 Oxytocin (Pitocin) Confirm Administered Dose 30 unit .ROUTE .STK-MED ONE Stop: 01/24/19 07:56 Phenylephrine HCl (Phenylephrine In Ns 100 Mcg/Ml) Confirm Administered Dose 1 mg .ROUTE .STK-MED ONE Stop: 01/24/19 07:56 - Exam General: Reports: Alert, Oriented, Cooperative, No Acute Distress Lungs: Reports: Normal Respiratory Effort GI/Abdominal Exam: Soft, Non-Tender (Female) Exam: Deferred, Vaginal Bleeding Rectal (Female) Exam: Deferred Back Exam: Reports: Full Range of Motion Extremities: Normal Range of Motion Skin: Reports: Warm, Dry, Intact Wound/Incisions: Reports: Healing Well, No Drainage. Denies: Erythema Neurological: Reports: No New Focal Deficit, Normal Speech, Normal Tone, Strength Equal Bilateral Psy/Mental Status: Reports: Alert, Normal Affect, Normal Mood
== END 2019-01-26 10:55 | disposition critical access hospital (66) | DRG 788 ==
LOC: MW.OB 05:13
PROVIDERS: ADMIT Obstetrics & Gynecology; ATTEND Obstetrics & Gynecology
PROC: 10D00Z1 Extraction of Products of Conception, Low, Open Approach (ICD-10-PCS; principal; 2019-01-24)
DX: O34.211 Maternal care for low transverse scar from previous cesarean delivery (principal); N85.8 Other specified noninflammatory disorders of uterus; Z3A.39 39 weeks gestation of pregnancy; Z37.0 Single live birth; O99.62 Diseases of the digestive system complicating childbirth; K92.89 Other specified diseases of the digestive system; K21.9 Gastro-esophageal reflux disease without esophagitis; Z87.891 Personal history of nicotine dependence
CPT/HCPCS: 36415; 59025; 85014; 85018; 85027; 86850; 86900; 86901; A9270-GY; J0690; J1885; J2370; J2590; J7120